=== PATIENT | female | born 1990 ===

== ENCOUNTER 2017-09-19 16:05 | Emergency (ER) | payer SELFPAY ==
[2017-09-19 16:19] VITALS: BP 166/109
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
== END 2017-09-19 18:30 | disposition left against medical advice (07) ==
LOC: ED 16:05
DX: S69.91XA Unspecified injury of right wrist, hand and finger(s), initial encounter (principal); Z53.21 Procedure and treatment not carried out due to patient leaving prior to being seen by health care provider; X58.XXXA Exposure to other specified factors, initial encounter; Y93.89 Activity, other specified; Y99.8 Other external cause status; Y92.89 Other specified places as the place of occurrence of the external cause

== ENCOUNTER 2018-01-09 11:51 | Emergency (ER) | payer SELFPAY ==
[2018-01-09] MEDS ORDERED: MOTRIN PO ONE (13:00)
[2018-01-09 13:49] LABS: HCG Qualitative,Urine Negative (Negative)
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
--- NOTE | 2018-01-09 14:51 | XRay Report ---
FINAL REPORT PROCEDURE: XR HAND 3+V LT TECHNIQUE: Left hand, three views HISTORY: left hand pain COMPARISON: No prior studies are available for comparison. FINDINGS: No fracture or dislocation is seen. No focal osseous lesions are identified. IMPRESSION: No acute abnormality is identified
--- NOTE | 2018-01-09 14:52 | XRay Report ---
FINAL REPORT PROCEDURE: XR SPINE LUMBOSACRAL 2-3V TECHNIQUE: Lumbosacral spine, three views HISTORY: low back pain COMPARISON: No prior studies are available for comparison. FINDINGS: No scoliosis. The vertebral body heights and alignment are maintained. Disc spaces are preserved. Bilateral tubal ligation clips are noted in the pelvis. IMPRESSION: Unremarkable exam
--- NOTE | 2018-01-09 14:56 | XRay Report ---
FINAL REPORT PROCEDURE: XR FOREARM LT TECHNIQUE: Left forearm, two views HISTORY: left forearm pain COMPARISON: No prior studies are available for comparison. FINDINGS: No fracture or dislocation is seen. No focal osseous lesion. No radiopaque foreign body is seen. IMPRESSION: Unremarkable exam
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
[2018-01-09 17:29] VITALS: BP 148/98
== END 2018-01-09 17:29 | disposition home or self-care (01) ==
LOC: ED 11:51
DX: M54.2 Cervicalgia (principal); M79.632 Pain in left forearm; M54.5 Low back pain; R51 Headache; I10 Essential (primary) hypertension
CPT/HCPCS: 70450; 72100; 72125; 81025; 99284